=== PATIENT | female | born 1965 | race Caucasian/White ===

== ENCOUNTER 2017-12-22 20:41 | Inpatient (IN) | payer OTHER ==
[2017-12-22 21:16] LABS: ADD MAN DIFF? NO
[2017-12-22 21:20] LABS: BASO % 0 % (0-3); EOS % 1 % (0-3); HEMATOCRIT 41.5 % (36.0-47.0); HEMOGLOBIN 13.7 g/dL (12.0-15.5); LYMPH # 2.3 x10^3/uL (1.0-4.8); LYMPH % 35 % (24-48); MEAN CORPUSCULAR HEMOGLOBIN 29 pg (25-35); MEAN CORPUSCULAR HGB CONC 33 g/dL (31-37); MEAN CORPUSCULAR VOLUME 89 fL (79-100); MONO # 0.7 x10^3/uL (0.0-1.1); MONO % 10 % (0-9); NEUT # 3.5 x10^3uL (1.8-7.7); NEUT % 54 % (31-73); PLATELET COUNT 291 x10^3/uL (140-400); RED BLOOD COUNT 4.68 x10^6/uL (3.50-5.40); RED CELL DISTRIBUTION WIDTH 14.4 % (11.5-14.5); WHITE BLOOD COUNT 6.5 x10^3/uL (4.0-11.0)
[2017-12-22 21:26] LABS: ANION GAP 11 (6-14); BLOOD UREA NITROGEN 20 mg/dL (7-20); BUN/CREATININE RATIO 22 (6-20); CALCIUM 8.9 mg/dL (8.5-10.1); CARBON DIOXIDE 24 mmol/L (21-32); CHLORIDE 103 mmol/L (98-107); CREATININE 0.9 mg/dL (0.6-1.0); GFR 65.2; GLUCOSE 95 mg/dL (70-99); POTASSIUM 3.7 mmol/L (3.5-5.1); SODIUM 138 mmol/L (136-145)
[2017-12-22 21:32] LABS: ALBUMIN 3.7 g/dL (3.4-5.0); ALBUMIN/GLOBULIN RATIO 1.1 (1.0-1.7); ALK PHOS 63 U/L (46-116); ALT (SGPT) 23 U/L (14-59); TOTAL BILIRUBIN 0.3 mg/dL (0.2-1.0)
[2017-12-22 21:35] LABS: TROPONINI < 0.017 ng/mL (0.000-0.055)
[2017-12-22 21:41] LABS: AST (SGOT) 14 U/L (15-37)
[2017-12-22] MEDS ORDERED: ONDANSETRON PF 4 MG/2 ML VIAL. IV (23:15)
[2017-12-22] MEDS ORDERED: IOHEXOL 300 MG/ML 100ML VIAL. (23:21)
[2017-12-22 23:23] LABS: BILIRUBIN,URINE NEGATIVE (NEG); CLARITY,URINE CLEAR; GLUCOSE,URINE NEGATIVE (NEG); NITRITE,URINE NEGATIVE (NEG); PROTEIN,URINE NEGATIVE (NEG-TRACE); UROBILINOGEN,URINE 0.2 mg/dL (0.2 mg/dL)
[2017-12-22 23:26] LABS: COLOR,URINE STRAW
[2017-12-22 23:29] LABS: BACTERIA,URINE FEW /HPF (0-FEW); SQUAMOUS EPITHELIAL CELL,UR FEW /LPF
[2017-12-22] MEDS: IOHEXOL 300 MG/ML 100ML VIAL. IV (23:29)
[2017-12-22] MEDS ORDERED: CONTRAST GIVEN MC (23:30)
[2017-12-23] MEDS: ACETAMINOPHEN 325 MG TABLET. PO (02:47)
[2017-12-23 03:31] LABS: ADD MAN DIFF? NO
[2017-12-23 03:33] LABS: BASO % 0 % (0-3); EOS % 0 % (0-3); HEMATOCRIT 40.8 % (36.0-47.0); HEMOGLOBIN 13.9 g/dL (12.0-15.5); LYMPH # 1.6 x10^3/uL (1.0-4.8); LYMPH % 27 % (24-48); MEAN CORPUSCULAR HEMOGLOBIN 30 pg (25-35); MEAN CORPUSCULAR HGB CONC 34 g/dL (31-37); MEAN CORPUSCULAR VOLUME 88 fL (79-100); MONO # 0.6 x10^3/uL (0.0-1.1); MONO % 10 % (0-9); NEUT # 3.8 x10^3uL (1.8-7.7); NEUT % 63 % (31-73); PLATELET COUNT 262 x10^3/uL (140-400); RED BLOOD COUNT 4.63 x10^6/uL (3.50-5.40); RED CELL DISTRIBUTION WIDTH 14.3 % (11.5-14.5); WHITE BLOOD COUNT 6.1 x10^3/uL (4.0-11.0)
[2017-12-23 03:48] LABS: ANION GAP 10 (6-14); BLOOD UREA NITROGEN 15 mg/dL (7-20); CARBON DIOXIDE 24 mmol/L (21-32); CHLORIDE 107 mmol/L (98-107); CREATININE 0.9 mg/dL (0.6-1.0); GFR 65.2; GLUCOSE 155 mg/dL (70-99); POTASSIUM 3.8 mmol/L (3.5-5.1); SODIUM 141 mmol/L (136-145)
[2017-12-23 03:52] LABS: TROPONINI < 0.017 ng/mL (0.000-0.055)
[2017-12-23] MEDS ORDERED: ALPRAZolam 0.25 MG TABLET PO ×3 (09:00→10:15)
[2017-12-23] MEDS ORDERED: ACETAMINOPHEN 325 MG TABLET. PO (09:00)
[2017-12-23] MEDS ORDERED: ACETAMINOPHEN 650 MG SUPP.RECT. PR (09:00)
[2017-12-23] MEDS: CITALOPRAM 10 MG TABLET. PO (09:00)
[2017-12-23 09:30] LABS: CHOLESTEROL 218 mg/dL (0-200); HDLC 68 mg/dL (40-60); LDLC 143 mg/dL (0-100); NON-HDL CHOLESTEROL 150 mg/dL (0-129); TRIGLYCERIDES 33 mg/dL (0-150); VLDLC 7 mg/dL (0-40)
[2017-12-23 09:38] LABS: CHOLESTEROL/HDL RATIO 3.2
[2017-12-23] MEDS: ASPIRIN ENTERIC COATED 325 MG TABLET.DR. PO (09:41)
[2017-12-23] MEDS ORDERED: ALBUTEROL SULFATE 2.5 MG/3 ML NEBU. NEB ×2 (10:15→20:00)
[2017-12-23] MEDS ORDERED: NON FORMULARY ITEM (Levalbuterol Tartrate (Xopenex Hfa) 2 PUFF) IH ×2 (10:15→21:00)
[2017-12-23] MEDS: FLUTICASONE 50MCG/NASAL SPRAY 16GM BOTTLE. NS (13:23)
[2017-12-23] MEDS: PANTOPRAZOLE 40 MG TABLET.DR. PO (13:23)
[2017-12-23 16:46] LABS: THYROID STIM HORMONE (TSH) 2.539 uIU/mL (0.358-3.74)
[2017-12-23] MEDS ORDERED: NON FORMULARY ITEM (Lansoprazole (Prevacid) 1 CAP) PO (17:00)
[2017-12-23] MEDS ORDERED: BUDESONIDE 0.5 MG/2 ML NEBU. NEB (20:00)
[2017-12-23] MEDS ORDERED: MONTELUKAST SODIUM 10 MG TABLET. PO (21:00)
[2017-12-23] MEDS ORDERED: MOMETASONE FUROATE 220 MCG IH (21:00)
[2017-12-23] MEDS ORDERED: SIMVASTATIN 10 MG TABLET PO (21:00)
[2017-12-24 00:10] LABS: PROLACTIN 10.4 ng/mL (4.8-23.3)
[2017-12-24 01:12] LABS: FSH 72.6 mIU/mL (.)
[2017-12-24 01:12] LABS: LUTEINIZING HORMONE 41.2 mIU/mL (.)
[2017-12-24 02:17] LABS: HEMOGLOBIN A1C 5.1 % (4.8-5.6)
[2017-12-25 20:09] LABS: GROWTH HORMONE 0.1 ng/mL (0.0-10.0)
== END 2017-12-23 17:50 | disposition home or self-care (01) | DRG 103 ==
LOC: ER 20:41 → 6 SOUTH 23:05
DX: G43.109 Migraine with aura, not intractable, without status migrainosus (principal); G70.9 Myoneural disorder, unspecified; E16.2 Hypoglycemia, unspecified; E04.1 Nontoxic single thyroid nodule; E78.5 Hyperlipidemia, unspecified; F41.9 Anxiety disorder, unspecified; J45.909 Unspecified asthma, uncomplicated; R43.1 Parosmia; Z82.49 Family history of ischemic heart disease and other diseases of the circulatory system; Z87.440 Personal history of urinary (tract) infections; Z88.0 Allergy status to penicillin; Z88.2 Allergy status to sulfonamides; Z88.8 Allergy status to other drugs, medicaments and biological substances; Z91.040 Latex allergy status
CPT/HCPCS: 36415; 70450; 70496; 70498; 70551; 80048; 80053; 80061; 81001; 82533; 83001; 83002; 83003; 83036; 84146; 84443; 84484; 85025; 87086; 92610-GN; 93005; 93306; 97161-GP; 97165-GO; 99285-25; Q9967

== ENCOUNTER → 2018-02-06 | Outpatient (CLI) | payer OTHER ==
[~2018-02-06] MED LIST: LIDOCAINE 1% Multi-Dose 50 ML VIAL. INJ
== END | disposition home or self-care (01) ==
LOC: US 10:10
DX: E04.1 Nontoxic single thyroid nodule (principal); Z88.0 Allergy status to penicillin; Z88.1 Allergy status to other antibiotic agents; Z88.5 Allergy status to narcotic agent; Z91.040 Latex allergy status; Z87.440 Personal history of urinary (tract) infections; E16.2 Hypoglycemia, unspecified; Z98.890 Other specified postprocedural states
CPT/HCPCS: 10022; 60300; 76942; 88173; 88305